=== PATIENT | male | born 1945 | race Caucasian/White ===

== ENCOUNTER 2020-07-04 15:11 | Emergency (ER) | payer MEDICARE, OTHER ==
[~2020-07-04] VITALS: Ht 175.3 cm; Wt 109.1 kg
[2020-07-04 15:44] LABS: BASOPHILS % (AUTO) 0.3 % (0-1); EOSINOPHILS % (AUTO) 0 % (0-6); HEMATOCRIT 42.3 % (42.0-52.0); HEMOGLOBIN 14.1 g/dl (14.0-17.9); LYMPHOCYTES # (AUTO) 0.8 X10'3 (1.1-4.8); LYMPHOCYTES % (AUTO) 12.3 % (21-51); MEAN CORPUSCULAR HEMOGLOBIN 36.4 PG (27.0-31.0); MEAN CORPUSCULAR HGB CONC 33.4 g/dL (33.0-36.5); MEAN CORPUSCULAR VOLUME 109.2 FL (78-98); MEAN PLATELET VOLUME 7.6 FL (7.4-10.4); MONOCYTES # (AUTO) 0.5 X10'3 (0-0.9); MONOCYTES % (AUTO) 7.2 % (2-12); NEUTROPHILS # (AUTO) 5.4 X10'3 (1.8-7.7); NEUTROPHILS % (AUTO) 80.2 % (42-75); PLATELET COUNT 169 X10'3 (140-440); RED BLOOD COUNT 3.87 X10'6 (4.70-6.10); RED CELL DISTRIBUTION WIDTH 15.4 % (11.5-14.5); WHITE BLOOD COUNT 6.7 X10'3 (4.5-11.0)
[2020-07-04 15:58] LABS: ALANINE AMINOTRANSFERASE 39 U/L (12-78); ALBUMIN 3.9 G/DL (3.4-5.0); ALBUMIN/GLOBULIN RATIO 1.1 (1.1-1.5); ALKALINE PHOSPHATASE 61 IU/L (46-116); ANION GAP 14 (8-16); ASPARTATE AMINO TRANSFERASE 29 U/L (10-37); BILIRUBIN,TOTAL 1.2 MG/DL (0.1-1.0); BLOOD UREA NITROGEN 27 MG/DL (7-18); BUN/CREATININE RATIO 18.4 (5.4-32.0); CALCIUM 9.2 MG/DL (8.5-10.1); CHLORIDE 105 MMOL/L (99-107); CREATININE 1.47 MG/DL (0.60-1.10); GLUCOSE 177 MG/DL (70-104); POTASSIUM 4.4 MMOL/L (3.5-5.1); SODIUM 142 MMOL/L (135-145); TOTAL CARBON DIOXIDE 22.8 MMOL/L (24-32); TOTAL PROTEIN 7.5 G/DL (6.4-8.2); eGFR 47 ML/MIN
[2020-07-04] MEDS ORDERED: apixaban 5mg tablet PO ONE (16:15)
--- NOTE | 2020-07-04 16:49 | NUR ---
Echo at bedside
[2020-07-04] MEDS ORDERED: APIX5TAB3 PO (17:08)
[2020-07-04 17:31] VITALS: BP 157/79
== END 2020-07-04 17:30 | disposition home or self-care (01) ==
LOC: ER 15:12
DX: I48.92 Unspecified atrial flutter (principal); I10 Essential (primary) hypertension; J44.9 Chronic obstructive pulmonary disease, unspecified; M19.90 Unspecified osteoarthritis, unspecified site; G89.29 Other chronic pain; I49.9 Cardiac arrhythmia, unspecified; I65.29 Occlusion and stenosis of unspecified carotid artery; G62.9 Polyneuropathy, unspecified; Z87.891 Personal history of nicotine dependence; Z72.89 Other problems related to lifestyle; Z79.01 Long term (current) use of anticoagulants
CPT/HCPCS: 36415; 71045; 80053; 83880; 84484; 85025; 93005; 93306; 99285

== ENCOUNTER 2020-07-28 14:26 | Emergency (ER) | payer MEDICARE, OTHER ==
[~2020-07-28] VITALS: Ht 185.4 cm; Wt 109.0 kg
[~2020-07-28 14:26] MED LIST: APIX5TAB3 PO
--- NOTE | 2020-07-28 14:39 | NUR ---
DRESSING TO RT LOWER LEG WAS PLACED APPROX 1 1/2 HR AGO PER PT "BLEEDING REALLY BAD", DRESSING REMOVED NOW, NO BLEEDING AT THIS TIME
[2020-07-28] MEDS ORDERED: LIDOcaine 1% w/epiNEPHrine 1:200,000 30ml vial SQ ONE (14:45)
[2020-07-28] MEDS ORDERED: LIDOcaine 1% W/epiNEPHrine 1:200,000 10ml vial SQ ONE (14:50)
[2020-07-28] MEDS ORDERED: TETanus/Pertussis (Acell)/Diphther VAC/PF (Tdap-Adult) 0.5ml syringe IMVAC ONE (15:30)
--- NOTE | 2020-07-28 16:32 | NUR ---
Zoila Cargo will be here in approx 45 min, nonadherent dressing and curlex applied to sutured wound on left lower leg
[2020-07-28 17:31] VITALS: BP 147/88
== END 2020-07-28 17:34 | disposition home or self-care (01) ==
LOC: ER 14:27
DX: S81.812A Laceration without foreign body, left lower leg, initial encounter (principal); G89.29 Other chronic pain; I25.10 Atherosclerotic heart disease of native coronary artery without angina pectoris; J44.9 Chronic obstructive pulmonary disease, unspecified; M19.90 Unspecified osteoarthritis, unspecified site; I10 Essential (primary) hypertension; G62.9 Polyneuropathy, unspecified; Z72.89 Other problems related to lifestyle; Z98.890 Other specified postprocedural states; Z79.01 Long term (current) use of anticoagulants; W26.8XXA Contact with other sharp object(s), not elsewhere classified, initial encounter; Y93.89 Activity, other specified; Y92.89 Other specified places as the place of occurrence of the external cause; Y99.8 Other external cause status
CPT/HCPCS: 12002; 90471; 90715; 99284